=== PATIENT | female | born 1985 | race Caucasian/White ===

== ENCOUNTER 2017-09-19 11:23 | Emergency (ER) | payer OTHER ==
[~2017-09-19] VITALS: Ht 154.9 cm; Wt 54.4 kg
[~2017-09-19 11:23] MED LIST: BUSP15 PO; BUSPAR PO; Bactrim Ds Tab1 EACH PO; CEPH500; CIPR500 PO; CITA20 PO; Cleocin HCl150 MG PO; Cleocin HCl300 MG PO; IBUP600 PO; IBUPROFEN 200MG; MULVITMIND PO; Norco 5-325 Ta1 EACH PO; OXYACE5T PO; PROM25 PO; SERT100; Zofran4 MG PO; [UNRECOGNIZED DRUG - REMARK]; [UNRECOGNIZED DRUG - REMARK]
[2017-09-19] MEDS ORDERED: Cleocin HCl300 MG PO (12:09)
== END 2017-09-19 12:11 | disposition home or self-care (01) ==
LOC: ER 11:23
DX: K04.7 Periapical abscess without sinus (principal); Z88.0 Allergy status to penicillin; Z88.5 Allergy status to narcotic agent; Z88.1 Allergy status to other antibiotic agents; Z79.899 Other long term (current) drug therapy; F17.200 Nicotine dependence, unspecified, uncomplicated
CPT/HCPCS: 99282

== ENCOUNTER 2018-05-27 09:35 | Emergency (ER) | payer OTHER ==
[~2018-05-27] VITALS: Ht 154.9 cm; Wt 53.1 kg
== END 2018-05-27 10:10 | disposition home or self-care (01) ==
LOC: ER 09:35
DX: L23.7 Allergic contact dermatitis due to plants, except food (principal); Z88.0 Allergy status to penicillin; Z88.8 Allergy status to other drugs, medicaments and biological substances; Z88.5 Allergy status to narcotic agent; F17.200 Nicotine dependence, unspecified, uncomplicated
CPT/HCPCS: 96372; 99282-25; J2930; J3301

== ENCOUNTER 2025-02-21 11:58 | Emergency (ER) | payer OTHER ==
[~2025-02-21] VITALS: Ht 157.5 cm; Wt 59.0 kg
[~2025-02-21 11:58] MED LIST changes: +Cipro500 MG PO; +METR500 PO; +ONDA4ODT MM
[2025-02-21 12:15] VITALS: BP 129/102
[2025-02-21 12:40] LABS: BASOPHILS ABSOLUTE AUTO 0.06 K/mm3 (0.00-0.23); BASOPHILS PERCENT AUTO 1 % (0-2); EOSINOPHILS ABSOLUTE AUTO 0.26 K/mm3 (0.00-0.68); EOSINOPHILS PERCENT AUTO 4 % (0-6); Hematocrit 41.9 % (33.0-51.0); Hemoglobin 14.2 g/dL (11.5-16.0); IMMATURE GRAN ABSOLUTE AUTO 0.02 K/mm3 (0.00-0.10); IMMATURE GRAN PERCENT AUTO 0 % (0-1); LYMPHOCYTES ABSOLUTE AUTO 1.69 K/mm3 (0.84-5.20); LYMPHOCYTES PERCENT AUTO 23 % (21-46); MONOCYTES ABSOLUTE AUTO 0.65 K/mm3 (0.16-1.47); MONOCYTES PERCENT AUTO 9 % (4-13); Mean Corpuscular HGB Conc 33.9 g/dL (31.5-36.5); Mean Corpuscular Volume 91 fL (80-100); NEUTROPHILS ABSOLUTE AUTO 4.78 K/mm3 (1.96-9.15); NEUTROPHILS PERCENT AUTO 64 % (41-73); NRBC ABSOLUTE 0.00 K/mm3 (0.00-0.02); NRBC Auto 0.0 /100 WBC (0.0-0.2); Platelet Count 294 K/mm3 (150-400); RDW Coefficient Variation 12.2 % (11.7-14.2); RDW Standard Deviation 40.3 fL (35.1-46.3)
[2025-02-21 13:27] LABS: Alanine Aminotransfer (ALT/SGP 49.0 U/L (12-78); Albumin, Blood 3.9 g/dL (3.4-5.0); Albumin/Globulin Ratio 1.1 (0.8-1.8); Anion Gap 10.0 mmol/L (3-11); Aspartate Aminotrans (AST/SGOT 37.0 U/L (12-37); Bilirubin, Total 0.7 mg/dL (0.1-1.0); Blood Urea Nitrogen 15.0 mg/dL (8-24); CO2, Blood 27.0 mmol/L (21-32); Calcium, Blood 9.0 mg/dL (8.5-10.1); Chloride, Blood 104.0 mmol/L (98-108); Creatinine, Blood 0.96 mg/dL (0.40-1.00); Globulin, Blood 3.6 g/dL (2.2-4.0); Glucose, Blood 139.0 mg/dL (70-99); Potassium, Blood 3.6 mmol/L (3.5-5.5); Sodium, Blood 137.0 mmol/L (136-145); Total Protein, Blood 7.5 g/dL (6.4-8.2)
== END 2025-02-21 14:18 | disposition home or self-care (01) ==
LOC: ER 11:58
PROVIDERS: Emergency Medicine
DX: K62.5 Hemorrhage of anus and rectum (principal); Z88.0 Allergy status to penicillin; Z79.2 Long term (current) use of antibiotics; Z79.899 Other long term (current) drug therapy; F17.200 Nicotine dependence, unspecified, uncomplicated; Z87.442 Personal history of urinary calculi
CPT/HCPCS: 80053; 85025; 99283

== ENCOUNTER 2025-03-07 16:22 | Inpatient (IN) | payer OTHER ==
[~2025-03-07] VITALS: Ht 154.9 cm; Wt 65.3 kg
[2025-03-07] MEDS ORDERED: NS 1,000 ML IV SCH ×2 (16:50→20:30)
[2025-03-07 17:06] LABS: BASOPHILS ABSOLUTE AUTO 0.07 K/mm3 (0.00-0.23); BASOPHILS PERCENT AUTO 0 % (0-2); EOSINOPHILS ABSOLUTE AUTO 0.04 K/mm3 (0.00-0.68); EOSINOPHILS PERCENT AUTO 0 % (0-6); Hematocrit 43.4 % (33.0-51.0); Hemoglobin 14.9 g/dL (11.5-16.0); IMMATURE GRAN ABSOLUTE AUTO 0.10 K/mm3 (0.00-0.10); IMMATURE GRAN PERCENT AUTO 1 % (0-1); LYMPHOCYTES ABSOLUTE AUTO 0.75 K/mm3 (0.84-5.20); LYMPHOCYTES PERCENT AUTO 4 % (21-46); MONOCYTES ABSOLUTE AUTO 1.97 K/mm3 (0.16-1.47); MONOCYTES PERCENT AUTO 11 % (4-13); Mean Corpuscular HGB Conc 34.3 g/dL (31.5-36.5); Mean Corpuscular Volume 89 fL (80-100); NEUTROPHILS ABSOLUTE AUTO 14.58 K/mm3 (1.96-9.15); NEUTROPHILS PERCENT AUTO 83 % (41-73); NRBC ABSOLUTE 0.00 K/mm3 (0.00-0.02); NRBC Auto 0.0 /100 WBC (0.0-0.2); Platelet Count 214 K/mm3 (150-400); RDW Coefficient Variation 12.2 % (11.7-14.2); RDW Standard Deviation 40.4 fL (35.1-46.3)
[2025-03-07 17:10] LABS: Source, Urine Voided
[2025-03-07 17:15] LABS: Bilirubin, Urine Neg (Neg); Color, Urine Yellow (P-Yellow); Glucose Qualitative, Urine Neg (Neg); Ketones, Urine Neg (Neg); Leukocyte Esterase, Urine 3+ (Neg); Protein, Urine 3+ (Neg); Specific Gravity, Urine 1.010 (1.003-1.022); Urobilinogen, Urine NORM (Normal)
[2025-03-07 17:22] LABS: White Blood Cells, Urine TNTC /hpf (0-5)
[2025-03-07 17:33] LABS: Alanine Aminotransfer (ALT/SGP 118.0 U/L (12-78); Albumin, Blood 3.4 g/dL (3.4-5.0); Albumin/Globulin Ratio 0.8 (0.8-1.8); Anion Gap 9.0 mmol/L (3-11); Aspartate Aminotrans (AST/SGOT 175.0 U/L (12-37); Bilirubin, Total 1.3 mg/dL (0.1-1.0); Blood Urea Nitrogen 19.0 mg/dL (8-24); CO2, Blood 25.0 mmol/L (21-32); Calcium, Blood 9.3 mg/dL (8.5-10.1); Chloride, Blood 97.0 mmol/L (98-108); Creatinine, Blood 1.09 mg/dL (0.40-1.00); Globulin, Blood 4.3 g/dL (2.2-4.0); Glucose, Blood 122.0 mg/dL (70-99); Potassium, Blood 3.7 mmol/L (3.5-5.5); Sodium, Blood 127.0 mmol/L (136-145); Total Protein, Blood 7.7 g/dL (6.4-8.2)
[2025-03-07] MEDS ORDERED: Ondansetron HCl 2 MG / ML 2ML Vial IV PRN (20:30)
[2025-03-07] MEDS ORDERED: FLU VACC TS2025-26(6MOS UP)/PF 45 MCG/0.5 ML SYRINGE IM ONE (20:30)
[2025-03-07 20:44] LABS: Magnesium, Blood 2.2 mg/dL (1.6-2.4)
[2025-03-07] MEDS ORDERED: Ketorolac Tromethamine 15mg Vial IV PRN (20:50)
[2025-03-07] MEDS ORDERED: Lactobacil 2-S.Thermo-Bifido 1 1 Cap PO SCH (21:00)
[2025-03-07] MEDS ORDERED: Ketorolac Tromethamine 15mg Vial IV ONE (21:00)
[2025-03-07] MEDS ORDERED: NS 1,000 ML IV ONE (21:00)
--- NOTE | 2025-03-07 21:23 | NUR ---
CALLED ED FOR REPORT AT 2120. GOT REPORT FROM RANDEE ORNELAS. WILL PASS REPORT ON TO PRIMARY RN UPON HER RETURN.
[2025-03-07 21:55] VITALS: BP 124/77
--- NOTE | 2025-03-07 23:13 | NUR ---
ADMIT NOTE HANDOFF GOTTEN BY [employer] FROM OCCUPATIONAL THERAPY PROGRAM DIRECTORRANDEE ORNELAS. PT ARRIVED TO FLOOR VIA GURNEY. PERSONAL POSSESSIONS WITH PT. PT ORIENTED TO UNIT. CALL BUTTON WITHIN REACH.
--- NOTE | 2025-03-08 01:13 | NUR ---
CALL TO HOSPITALIST PATIENT ADMITTED WITH 3 DIFFERENT NS ORDERS. ONE BOLUS WAS GIVEN IN ER. NS STARTED AT 100ML/HR. AND THE 2ND ORDER FOR A BOLUS WAS DC'D PER PHYSICIAN.
[2025-03-08 04:27] VITALS: BP 119/77
--- NOTE | 2025-03-08 04:50 | NUR ---
SHIFT SUMMARY PATIENT ADMITTED THIS SHIFT FOR ACUTE PYELONEPHRITIS. VSS. PATIENT GIVEN ONE TIME DOSE OF SCHEDULED TORADOL FOR PAIN THIS SHIFT. INDEPENDENT IN ROOM, STEADY GAIT WHILE WALKING. RESTING INTERMITTENLY THROUGHOUT THE SHIFT. BED RAILS UP X2. CALL LIGHT WITHIN REACH. BED IN LOWEST POSITION FOR SAFETY.
[2025-03-08 05:25] LABS: Hematocrit 41.9 % (33.0-51.0); Hemoglobin 13.8 g/dL (11.5-16.0); Mean Corpuscular HGB Conc 32.9 g/dL (31.5-36.5); Mean Corpuscular Volume 93 fL (80-100); NRBC ABSOLUTE 0.00 K/mm3 (0.00-0.02); NRBC Auto 0.0 /100 WBC (0.0-0.2); Platelet Count 175 K/mm3 (150-400); RDW Coefficient Variation 12.4 % (11.7-14.2); RDW Standard Deviation 42.5 fL (35.1-46.3)
[2025-03-08 06:18] LABS: Alanine Aminotransfer (ALT/SGP 112.0 U/L (12-78); Albumin, Blood 2.9 g/dL (3.4-5.0); Albumin/Globulin Ratio 0.8 (0.8-1.8); Anion Gap 9.0 mmol/L (3-11); Aspartate Aminotrans (AST/SGOT 111.0 U/L (12-37); Bilirubin, Total 0.6 mg/dL (0.1-1.0); Blood Urea Nitrogen 14.0 mg/dL (8-24); CO2, Blood 24.0 mmol/L (21-32); Calcium, Blood 8.2 mg/dL (8.5-10.1); Chloride, Blood 102.0 mmol/L (98-108); Creatinine, Blood 0.99 mg/dL (0.40-1.00); Globulin, Blood 3.7 g/dL (2.2-4.0); Glucose, Blood 127.0 mg/dL (70-99); Potassium, Blood 3.5 mmol/L (3.5-5.5); Sodium, Blood 131.0 mmol/L (136-145); Total Protein, Blood 6.6 g/dL (6.4-8.2)
[2025-03-08 07:21] VITALS: BP 108/74
[2025-03-08] MEDS ORDERED: Ciprofloxacin 400MG/D5 200ML 200 ML IV SCH (10:00)
[2025-03-08 15:13] VITALS: BP 113/80
[2025-03-08] MEDS ORDERED: Enoxaparin 40 MG/0.4 ML SYR SC SCH (17:00)
--- NOTE | 2025-03-08 18:35 | NUR ---
SHIFT SUMMARY PT IS A/OX4. INDEPENDENT IN THE ROOM AND HALLS. NO ACUTE CHANGES THROUGHOUT THIS SHIFT. PT REPORTS FEELING IMPROVEMENT TO R SIDED FLANK PAIN. TORADOL GIVEN X1 THIS SHIFT PER JUL. NS RUNNING @ 100 ML/HR. PT IS PLEASANT AND COOPERATIVE WITH CARE AND CALLS APPROPRIATELY.
[2025-03-08 19:11] VITALS: BP 130/95
[2025-03-09 01:43] VITALS: BP 111/66
[2025-03-09 03:02] VITALS: BP 99/67
[2025-03-09 05:10] LABS: BASOPHILS ABSOLUTE AUTO 0.03 K/mm3 (0.00-0.23); BASOPHILS PERCENT AUTO 0 % (0-2); EOSINOPHILS ABSOLUTE AUTO 0.15 K/mm3 (0.00-0.68); EOSINOPHILS PERCENT AUTO 2 % (0-6); Hematocrit 43.4 % (33.0-51.0); Hemoglobin 14.2 g/dL (11.5-16.0); IMMATURE GRAN ABSOLUTE AUTO 0.06 K/mm3 (0.00-0.10); IMMATURE GRAN PERCENT AUTO 1 % (0-1); LYMPHOCYTES ABSOLUTE AUTO 0.94 K/mm3 (0.84-5.20); LYMPHOCYTES PERCENT AUTO 13 % (21-46); MONOCYTES ABSOLUTE AUTO 1.18 K/mm3 (0.16-1.47); MONOCYTES PERCENT AUTO 17 % (4-13); Mean Corpuscular HGB Conc 32.7 g/dL (31.5-36.5); Mean Corpuscular Volume 93 fL (80-100); NEUTROPHILS ABSOLUTE AUTO 4.76 K/mm3 (1.96-9.15); NEUTROPHILS PERCENT AUTO 67 % (41-73); NRBC ABSOLUTE 0.00 K/mm3 (0.00-0.02); NRBC Auto 0.0 /100 WBC (0.0-0.2); Platelet Count 208 K/mm3 (150-400); RDW Coefficient Variation 12.4 % (11.7-14.2); RDW Standard Deviation 42.4 fL (35.1-46.3)
[2025-03-09 05:39] LABS: Alanine Aminotransfer (ALT/SGP 124.0 U/L (12-78); Albumin, Blood 2.9 g/dL (3.4-5.0); Albumin/Globulin Ratio 0.7 (0.8-1.8); Anion Gap 7.0 mmol/L (3-11); Aspartate Aminotrans (AST/SGOT 87.0 U/L (12-37); Bilirubin, Total 0.4 mg/dL (0.1-1.0); Blood Urea Nitrogen 10.0 mg/dL (8-24); CO2, Blood 25.0 mmol/L (21-32); Calcium, Blood 8.5 mg/dL (8.5-10.1); Chloride, Blood 109.0 mmol/L (98-108); Creatinine, Blood 0.83 mg/dL (0.40-1.00); Globulin, Blood 3.9 g/dL (2.2-4.0); Glucose, Blood 122.0 mg/dL (70-99); Potassium, Blood 3.7 mmol/L (3.5-5.5); Sodium, Blood 137.0 mmol/L (136-145); Total Protein, Blood 6.8 g/dL (6.4-8.2)
--- NOTE | 2025-03-09 06:33 | NUR ---
ASSISTANT FOOD SERVICE DIRECTOR SUMMARY PT A&O4, VSS. ABLE TO COMMUNICATE NEEDS APPROPRIATELY. PT REQUESTED IBUPROFEN FOR BACK PAIN THIS SHIFT. ORDER OBTAINED AND TORADOL DC'D. IBUPROFEN ADMIN 1X W/ GOOD EFFECT. PT HAS BEEN ASLEEP FOR MOST OF THE SHIFT. CHEST RISE/RESPIRATIONS NOTED. PT WAS NOTED TO BE DRENCHED IN SWEAT WHEN SLEEPING. WHEN ASKED PT STATES THIS IS NORMAL. REMAINS ON NS 100 ML/HR CONT INF. PT DID REPORT HEADACHE AND HX OF DRINKING 2 24 OZ BEERS EVERY WEEK WITH LAST DRINK OF 1 24 OZ BEER 2 DAYS AGO. PROVIDER AWARE. BED RAILS UP X 2, BED IN LOWEST POSITION, BED WHEELS LOCKED, PERSONAL BELONGINGS AND CALL LIGHT WITHIN REACH FOR SAFETY.
[2025-03-09 07:57] VITALS: BP 102/67
[2025-03-09] MEDS ORDERED: VISBIOME 112.51 EACH PO (12:00)
[2025-03-09] MEDS ORDERED: CIPR500 PO (12:00)
--- NOTE | 2025-03-09 12:10 | NUR ---
PT IS DISCHARGED TO HOME. DISCHARGE EDUCATION PROVIDED AND EDUCATED ON AT TIME OF DISCHARGE. ALL VALUABLES RETURNED AND SENT WITH PT. MEDICATIONS FAXED TO [facility].
== END 2025-03-09 12:10 | disposition home or self-care (01) | DRG 872 ==
LOC: ER 16:22 → MEDS 16:23
PROVIDERS: Emergency Medicine; Nurse Practitioner Acute Care; ADMIT Student in an Organized Health Care Education/Training Program
DX: A41.51 Sepsis due to Escherichia coli [E. coli] (principal); N10 Acute pyelonephritis; E87.1 Hypo-osmolality and hyponatremia; F41.9 Anxiety disorder, unspecified; F32.A Depression, unspecified; Z96.0 Presence of urogenital implants; F17.210 Nicotine dependence, cigarettes, uncomplicated; Q64.5 Congenital absence of bladder and urethra; R74.01 Elevation of levels of liver transaminase levels; Z87.442 Personal history of urinary calculi; Z98.891 History of uterine scar from previous surgery; Z98.51 Tubal ligation status; Z87.440 Personal history of urinary (tract) infections; Z79.899 Other long term (current) drug therapy; Z88.0 Allergy status to penicillin; Z88.1 Allergy status to other antibiotic agents; Z88.8 Allergy status to other drugs, medicaments and biological substances; Z28.21 Immunization not carried out because of patient refusal
CPT/HCPCS: 36415; 74177; 80053; 81001; 83036; 83605; 83735; 84703; 85025; 85027; 87077; 87086; 87186; 96361; 96365; 96366; 99285-25; A9270; G0378; J0744; J1885; J1956; J7030; Q9967